=== PATIENT | male | born 1990 | race Caucasian/White ===

== ENCOUNTER 2025-11-01 11:58 | Emergency (ER) | payer OTHER ==
[~2025-11-01] VITALS: Ht 185.4 cm; Wt 70.3 kg
[2025-11-01 12:08] VITALS: BP 126/80; O2SAT 98
== END 2025-11-01 12:47 | disposition home or self-care (01) ==
LOC: ER 11:58
DX: F19.10 Other psychoactive substance abuse, uncomplicated (principal); F17.290 Nicotine dependence, other tobacco product, uncomplicated; F32.A Depression, unspecified; F41.9 Anxiety disorder, unspecified
CPT/HCPCS: A4606; A4663